=== PATIENT | male | born 1980 | race Caucasian/White ===

== ENCOUNTER 2019-10-03 18:10 | Inpatient (IN) | payer BC ==
[~2019-10-03] VITALS: Ht 175.3 cm; Wt 100.0 kg
[~2019-10-03 18:10] MED LIST: HYDR-4353 PO; KETO10TA2 PO
[2019-10-03] MEDS ORDERED: normal saline 1000ml 1,000 ML IV ONE ×2 (18:40→22:10)
[2019-10-03] MEDS ORDERED: morphine 4 MG/ML inj SYRINge IV ONE ×2 (18:40→20:00)
[2019-10-03] MEDS ORDERED: ondansetron/PF 4mg/2ml inj IV ONE (18:40)
[2019-10-03 18:52] LABS: CLARITY,URINE CLEAR (Clear); COLOR,URINE STRAW (Yellow); GLUCOSE, URINE NEGATIVE (Neg); KETONES,URINE NEGATIVE (Neg); LEUKOCYTE ESTERASE ,URINE NEGATIVE (Neg); NITRITES, URINE NEGATIVE (Neg); OCCULT BLOOD,URINE NEGATIVE (Neg); PROTEIN,URINE NEGATIVE (Neg); UROBILINOGEN,URINE 0.2 E.U/dL (0.2-1.0)
[2019-10-03 18:54] LABS: BASOPHILS # (AUTO) 0.1 X10'3 (0-0.2); BASOPHILS % (AUTO) 0.5 % (0-1); EOSINOPHILS % (AUTO) 0.1 % (0-6); HEMATOCRIT 45.2 % (42.0-52.0); HEMOGLOBIN 15.6 g/dl (14.0-17.9); LYMPHOCYTES # (AUTO) 2.8 X10'3 (1.1-4.8); LYMPHOCYTES % (AUTO) 18.5 % (21-51); MEAN CORPUSCULAR HEMOGLOBIN 31.9 PG (27.0-31.0); MEAN CORPUSCULAR HGB CONC 34.5 g/dL (33.0-36.5); MEAN CORPUSCULAR VOLUME 92.7 FL (78-98); MEAN PLATELET VOLUME 8.7 FL (7.4-10.4); MONOCYTES # (AUTO) 1.2 X10'3 (0-0.9); MONOCYTES % (AUTO) 7.6 % (2-12); NEUTROPHILS # (AUTO) 11.2 X10'3 (1.8-7.7); NEUTROPHILS % (AUTO) 73.3 % (42-75); PLATELET COUNT 194 X10'3 (140-440); RED BLOOD COUNT 4.88 X10'6 (4.70-6.10); RED CELL DISTRIBUTION WIDTH 12.9 % (11.5-14.5); WHITE BLOOD COUNT 15.3 X10'3 (4.5-11.0)
[2019-10-03 18:55] LABS: UA COLLECTION TYPE CLN CATCH MIDSTREAM
[2019-10-03 19:04] LABS: ALANINE AMINOTRANSFERASE 85 U/L (12-78); ALBUMIN/GLOBULIN RATIO 0.9 (1.1-1.5); ALKALINE PHOSPHATASE 62 IU/L (46-116); ANION GAP 11 (8-16); ASPARTATE AMINO TRANSFERASE 36 U/L (10-37); BLOOD UREA NITROGEN 19 MG/DL (7-18); BUN/CREATININE RATIO 8.8 (5.4-32.0); CALCIUM 9.1 MG/DL (8.5-10.1); CHLORIDE 103 MMOL/L (99-107); CREATININE 2.16 MG/DL (0.60-1.10); GLUCOSE 130 MG/DL (70-104); POTASSIUM 3.9 MMOL/L (3.5-5.1); SODIUM 137 MMOL/L (135-145); TOTAL CARBON DIOXIDE 22.6 MMOL/L (24-32); TOTAL PROTEIN 8.3 G/DL (6.4-8.2); eGFR 34 ML/MIN
[2019-10-03] MEDS ORDERED: fentaNYL/PF 50MCG/1 ML 2ML syringe IV ONE (20:15)
[2019-10-03] MEDS ORDERED: magnesium Cl slow-release 64mg tablet PO PRN (20:30)
[2019-10-03] MEDS ORDERED: potassium Cl 20 mEq SR tablet PO PRN ×2 (20:30)
[2019-10-03] MEDS ORDERED: mag hydrox/Alum hydrox/simeth 30ml oral suspension PO PRN (20:30)
[2019-10-03] MEDS ORDERED: acetaminophen 325mg tablet PO PRN (20:30)
[2019-10-03] MEDS ORDERED: ondansetron/PF 4mg/2ml inj IV PRN (20:30)
[2019-10-03] MEDS ORDERED: magnesium hydroxide 30ml (MOM) UD suspension PO PRN (20:30)
[2019-10-03] MEDS ORDERED: potassium CL 10mEq/100ml bag 100 ML IV PRN ×2 (20:30)
[2019-10-03] MEDS ORDERED: magnesium 2GM in 50ml NS 50 ML IV PRN (20:30)
[2019-10-03] MEDS ORDERED: magnesium 4gm in 100ml NS 100 ML IV PRN (20:30)
[2019-10-03] MEDS ORDERED: temazepam 15mg capsule PO PRN (21:00)
[2019-10-03 21:15] VITALS: BP 138/83
--- NOTE | 2019-10-03 21:15 | NUR ---
PATIENT ADMITTED TO ROOM 346A FROM ER FOR FLANK PAIN. PLACED COMFORTABLE IN BED. VITAL SIGNS TAKEN AND RECORDED.
[2019-10-03] MEDS: normal saline 1000ml 1,000 ML IV SCH (21:19)
[2019-10-03] MEDS: tamsulosin 0.4mg capsule PO SCH (23:00)
[2019-10-04] VITALS: BP 126/73
[2019-10-04 05:32] LABS: ALANINE AMINOTRANSFERASE 60 U/L (12-78); ALBUMIN 3.3 G/DL (3.4-5.0); ALBUMIN/GLOBULIN RATIO 0.9 (1.1-1.5); ALKALINE PHOSPHATASE 49 IU/L (46-116); ANION GAP 7 (8-16); ASPARTATE AMINO TRANSFERASE 23 U/L (10-37); BILIRUBIN,TOTAL 1.1 MG/DL (0.1-1.0); BLOOD UREA NITROGEN 12 MG/DL (7-18); BUN/CREATININE RATIO 8.8 (5.4-32.0); CALCIUM 8.4 MG/DL (8.5-10.1); CHLORIDE 110 MMOL/L (99-107); CREATININE 1.36 MG/DL (0.60-1.10); GLUCOSE 105 MG/DL (70-104); POTASSIUM 3.9 MMOL/L (3.5-5.1); SODIUM 141 MMOL/L (135-145); TOTAL CARBON DIOXIDE 23.6 MMOL/L (24-32); TOTAL PROTEIN 6.9 G/DL (6.4-8.2); eGFR 58 ML/MIN
[2019-10-04 05:33] LABS: BASOPHILS % (AUTO) 0.2 % (0-1); EOSINOPHILS # (AUTO) 0.1 X10'3 (0-0.9); EOSINOPHILS % (AUTO) 0.5 % (0-6); HEMATOCRIT 40.5 % (42.0-52.0); LYMPHOCYTES # (AUTO) 2.7 X10'3 (1.1-4.8); LYMPHOCYTES % (AUTO) 24.3 % (21-51); MEAN CORPUSCULAR HEMOGLOBIN 32.1 PG (27.0-31.0); MEAN CORPUSCULAR HGB CONC 34.5 g/dL (33.0-36.5); MEAN CORPUSCULAR VOLUME 92.9 FL (78-98); MEAN PLATELET VOLUME 8.8 FL (7.4-10.4); MONOCYTES # (AUTO) 1.3 X10'3 (0-0.9); PLATELET COUNT 173 X10'3 (140-440); RED BLOOD COUNT 4.36 X10'6 (4.70-6.10); RED CELL DISTRIBUTION WIDTH 12.8 % (11.5-14.5)
--- NOTE | 2019-10-04 06:10 | NUR ---
I have received report from Shaggy MARTIN and had the opportunity to ask questions and assume patient care.
--- NOTE | 2019-10-04 06:27 | NUR ---
Problems reprioritized. Patient report given, questions answered & plan of care reviewed with JUNE MARTIN.
[2019-10-04 07:44] VITALS: BP 124/78
[2019-10-04] MEDS: enoxaparin 40mg/0.4ml syringe SQ SCH (07:47)
[2019-10-04] MEDS: K and/or MAG REPLACEMENT MC SCH ×2 (07:48→20:00)
[2019-10-04 11:00] VITALS: BP 118/78
[2019-10-04] MEDS ORDERED: normal saline 1000ml 1,000 ML IV ONE (13:35)
[2019-10-04] MEDS: normal saline 1000ml 1,000 ML IV SCH ×2 (15:08→18:30)
--- NOTE | 2019-10-04 18:16 | NUR ---
Problems reprioritized. Patient report given, questions answered & plan of care reviewed with Desirae MARTIN.
--- NOTE | 2019-10-04 18:30 | NUR ---
Patient in room [facility] 346. I have received report from JUNE and had the opportunity to ask questions and assume patient care.
[2019-10-04] MEDS: HYDROmorphone inj. 0.5 MG/0.5 ML DISP.SYRIN IV PRN (19:09)
[2019-10-04 19:48] VITALS: BP 139/95
[2019-10-04] MEDS: HYDROcodone/acetaminophen 5mg/325mg tablet PO PRN (20:02)
[2019-10-04] MEDS: tamsulosin 0.4mg capsule PO SCH (20:02)
--- NOTE | 2019-10-04 21:00 | NUR ---
PT CONTINUES TO RATE PAIN TO LEFT LATERAL ABDOMEN AND GROIN AT A 8/10 AFTER DILAUDID AND NORCO. PT STILL ABLE TO VOID. PT WOULD LIKE TO SEE IF PAIN "GETS BETTER" BEFORE REQUESTING ADDITIONAL MEDICATION FROM MD. WILL CONTINUE TO MONITOR.
[2019-10-04 23:00] VITALS: BP 114/73
[2019-10-05] MEDS: normal saline 1000ml 1,000 ML IV SCH ×3 (00:15→22:29)
[2019-10-05 05:17] LABS: BASOPHILS % (AUTO) 0.4 % (0-1); EOSINOPHILS # (AUTO) 0.1 X10'3 (0-0.9); EOSINOPHILS % (AUTO) 1.5 % (0-6); HEMATOCRIT 40.6 % (42.0-52.0); HEMOGLOBIN 14.1 g/dl (14.0-17.9); LYMPHOCYTES # (AUTO) 2.2 X10'3 (1.1-4.8); LYMPHOCYTES % (AUTO) 27.4 % (21-51); MEAN CORPUSCULAR HEMOGLOBIN 32.2 PG (27.0-31.0); MEAN CORPUSCULAR HGB CONC 34.7 g/dL (33.0-36.5); MEAN CORPUSCULAR VOLUME 92.7 FL (78-98); MEAN PLATELET VOLUME 8.8 FL (7.4-10.4); MONOCYTES # (AUTO) 1.1 X10'3 (0-0.9); MONOCYTES % (AUTO) 13.9 % (2-12); NEUTROPHILS # (AUTO) 4.5 X10'3 (1.8-7.7); NEUTROPHILS % (AUTO) 56.8 % (42-75); PLATELET COUNT 173 X10'3 (140-440); RED BLOOD COUNT 4.38 X10'6 (4.70-6.10); RED CELL DISTRIBUTION WIDTH 12.6 % (11.5-14.5)
[2019-10-05 05:29] LABS: ALANINE AMINOTRANSFERASE 50 U/L (12-78); ALBUMIN 3.1 G/DL (3.4-5.0); ALBUMIN/GLOBULIN RATIO 0.8 (1.1-1.5); ALKALINE PHOSPHATASE 45 IU/L (46-116); ANION GAP 9 (8-16); ASPARTATE AMINO TRANSFERASE 19 U/L (10-37); BLOOD UREA NITROGEN 10 MG/DL (7-18); CALCIUM 8.6 MG/DL (8.5-10.1); CHLORIDE 107 MMOL/L (99-107); CREATININE 1.11 MG/DL (0.60-1.10); GLUCOSE 98 MG/DL (70-104); SODIUM 141 MMOL/L (135-145); TOTAL CARBON DIOXIDE 24.8 MMOL/L (24-32); TOTAL PROTEIN 6.9 G/DL (6.4-8.2); eGFR 73 ML/MIN
--- NOTE | 2019-10-05 06:30 | NUR ---
Problems reprioritized. Patient report given, questions answered & plan of care reviewed with SAMIR.
[2019-10-05] MEDS: enoxaparin 40mg/0.4ml syringe SQ SCH (06:42)
[2019-10-05] MEDS: K and/or MAG REPLACEMENT MC SCH ×2 (06:43→19:12)
[2019-10-05 07:00] VITALS: BP 116/75
[2019-10-05] MEDS ORDERED: FLO0.4C PO (07:56)
[2019-10-05] MEDS: HYDROcodone/acetaminophen 5mg/325mg tablet PO PRN (08:57)
[2019-10-05] MEDS: HYDROmorphone inj. 0.5 MG/0.5 ML DISP.SYRIN IV PRN (09:57)
[2019-10-05 11:00] VITALS: BP 132/87
[2019-10-05 18:00] VITALS: BP 129/81
--- NOTE | 2019-10-05 18:00 | NUR ---
Patient in room [facility] 346. I have received report from Johanna MARTIN and had the opportunity to ask questions and assume patient care.
--- NOTE | 2019-10-05 18:34 | NUR ---
Problems reprioritized. Patient report given, questions answered & plan of care reviewed with ALLIE RN.
[2019-10-05] MEDS: tamsulosin 0.4mg capsule PO SCH (20:53)
[2019-10-06] VITALS (18 sets, daily range): BP systolic 121–152; BP diastolic 65–96
[2019-10-06 05:41] LABS: BASOPHILS % (AUTO) 0.5 % (0-1); EOSINOPHILS # (AUTO) 0.1 X10'3 (0-0.9); EOSINOPHILS % (AUTO) 1.5 % (0-6); HEMATOCRIT 39.9 % (42.0-52.0); HEMOGLOBIN 14.1 g/dl (14.0-17.9); LYMPHOCYTES % (AUTO) 27.8 % (21-51); MEAN CORPUSCULAR HEMOGLOBIN 32.5 PG (27.0-31.0); MEAN CORPUSCULAR HGB CONC 35.5 g/dL (33.0-36.5); MEAN CORPUSCULAR VOLUME 91.6 FL (78-98); MEAN PLATELET VOLUME 9.1 FL (7.4-10.4); MONOCYTES # (AUTO) 0.8 X10'3 (0-0.9); MONOCYTES % (AUTO) 11.1 % (2-12); NEUTROPHILS # (AUTO) 4.3 X10'3 (1.8-7.7); NEUTROPHILS % (AUTO) 59.1 % (42-75); PLATELET COUNT 184 X10'3 (140-440); RED BLOOD COUNT 4.35 X10'6 (4.70-6.10); RED CELL DISTRIBUTION WIDTH 12.9 % (11.5-14.5); WHITE BLOOD COUNT 7.3 X10'3 (4.5-11.0)
[2019-10-06 05:46] LABS: ALANINE AMINOTRANSFERASE 45 U/L (12-78); ALBUMIN 3.2 G/DL (3.4-5.0); ALBUMIN/GLOBULIN RATIO 0.8 (1.1-1.5); ALKALINE PHOSPHATASE 46 IU/L (46-116); ANION GAP 8 (8-16); ASPARTATE AMINO TRANSFERASE 20 U/L (10-37); BILIRUBIN,TOTAL 0.6 MG/DL (0.1-1.0); BLOOD UREA NITROGEN 14 MG/DL (7-18); BUN/CREATININE RATIO 11.6 (5.4-32.0); CALCIUM 8.8 MG/DL (8.5-10.1); CHLORIDE 108 MMOL/L (99-107); CREATININE 1.21 MG/DL (0.60-1.10); GLUCOSE 108 MG/DL (70-104); MAGNESIUM 1.8 MG/DL (1.5-2.4); POTASSIUM 3.7 MMOL/L (3.5-5.1); SODIUM 140 MMOL/L (135-145); TOTAL CARBON DIOXIDE 24.3 MMOL/L (24-32); TOTAL PROTEIN 7.1 G/DL (6.4-8.2); eGFR 66 ML/MIN
--- NOTE | 2019-10-06 06:20 | NUR ---
Problems reprioritized. Patient report given, questions answered & plan of care reviewed with Bella kaminski. Patient is resting comfortably at time of report.
--- NOTE | 2019-10-06 06:32 | NUR ---
Patient in room [facility] 346. I have received report from Magdaleno MARTIN and had the opportunity to ask questions and assume patient care.
[2019-10-06] MEDS: K and/or MAG REPLACEMENT MC SCH (07:14)
[2019-10-06] MEDS: normal saline 1000ml 1,000 ML IV SCH ×3 (08:29→14:46)
[2019-10-06] MEDS ORDERED: iohexol 300 MG/1 ML 50ml polymer ONE (10:53)
--- NOTE | 2019-10-06 11:18 | NUR ---
Patient report given to recovery room nurse Katina MARTIN.
[2019-10-06] MEDS ORDERED: ondansetron/PF 4mg/2ml inj IV PRN (11:50)
[2019-10-06] MEDS ORDERED: ringers solution, lacted 1,000 ML IV SCH (11:50)
[2019-10-06] MEDS ORDERED: morphine 4 MG/ML inj SYRINge IV PRN (11:50)
[2019-10-06] MEDS ORDERED: proCHLORperazine 10 MG/2 ml inj IV PRN (11:50)
[2019-10-06] MEDS ORDERED: meperidine/PF 25mg/ml syringe IV PRN ×3 (11:50)
[2019-10-06] MEDS ORDERED: morphine 2 MG/ML inj. syringe IV PRN (11:50)
[2019-10-06] MEDS ORDERED: fentaNYL/PF 50MCG/1 ML 2ML syringe ONE (12:02)
[2019-10-06] MEDS ORDERED: midazolam 2 mg/2 ml injection ONE (12:02)
[2019-10-06] MEDS ORDERED: propofol inj 20 ML IV ONE (12:04)
[2019-10-06] MEDS ORDERED: ceFAZolin 1000mg inj ONE ×2 (12:22)
--- NOTE | 2019-10-06 12:40 | NUR ---
Received from OR via , accompanied by Anesthesiologist DR JASMINE and report given by Anesthesiolgist. AWAKENS TO VOICE. VITALS STABLE. DEMETRIA PAIN. NO BLEEDING NOTED.
--- NOTE | 2019-10-06 13:49 | NUR ---
Received patient report from recovery room nurse Ashish MARTIN.
--- NOTE | 2019-10-06 13:50 | NUR ---
Report called to receiving nurse. Transferred via BED Belongings . Special Issues communicated to receiving nurse. AWAKE AND ORIENTED. VITALS STABLE. DEMETRIA PAIN.TO SURGICAL RM 346A AT THIS TIME.
[2019-10-06] MEDS: HYDROcodone/acetaminophen 5mg/325mg tablet PO PRN (15:19)
[2019-10-06] MEDS ORDERED: ceFAZolin 1GM/D5W- ADD-VANTAGE 50 ML IV SCH (16:00)
[2019-10-06] MEDS ORDERED: CEPH-572 PO (16:59)
[2019-10-06] MEDS ORDERED: HYDR-4383 PO (16:59)
--- NOTE | 2019-10-06 17:43 | NUR ---
Patient discharge paperwork gone over with patient and signed. Patient was given the opportunity to ask questions. Patient walked to front lobby with PCT. [place] triplicate given to patient.
== END 2019-10-06 17:40 | disposition home or self-care (01) | DRG 661 ==
LOC: ER 18:12 → SUR 3N 20:29 → OBSVTOIN 10-05 08:30
PROVIDERS: ADMIT Family Medicine; ATTEND Internal Medicine
PROC: BT1F1ZZ Fluoroscopy of Left Kidney, Ureter and Bladder using Low Osmolar Contrast (ICD-10-PCS; 2019-10-06)
PROC: 0T778DZ Dilation of Left Ureter with Intraluminal Device, Via Natural or Artificial Opening Endoscopic (ICD-10-PCS; principal; 2019-10-06 12:01)
DX: N13.2 Hydronephrosis with renal and ureteral calculous obstruction (principal); N17.9 Acute kidney failure, unspecified; K76.0 Fatty (change of) liver, not elsewhere classified
CPT/HCPCS: 96361; 96374; 96375; 96376; 99285; Z7506; 36415; 74176; 74420; 76000; 80053; 81003; 83735; 85025; 87081; A4618; C1758; C1769; C2617; G0378; J0690; J1170; J2250; J2270; J2405; J2704; J3010; J7030; Q9967